=== PATIENT | female | born 1990 | race Caucasian/White ===

== ENCOUNTER 2016-10-30 10:43 | Emergency (ER) | payer OTHER ==
[2016-10-30] MEDS ORDERED: SODIUM CHLORIDE 0.9% 1,000 ML IV ONE (11:19)
--- NOTE | 2016-10-30 11:43 | ED ---
Syncope HPI - General Chief Complaint: Syncope Stated Complaint: Syncope, 13wks preg Time Seen by Provider: 10/30/16 11:08 Source: patient Mode of arrival: ambulatory Limitations: no limitations - History of Present Illness Initial Comments: This patient is a 26-year-old woman, who states that she is also approximately 13 weeks , who states that she would like to be evaluated after she passed out. The patient relates that she dropped something and in attempting to catch it while it was falling she "jammed her finger." She states that there was a lot of pain related to this and then she passed out. The episode was observed by her who states that she was unconscious for probably about 2 seconds. There was no tonic-clonic movement or loss of continence. The patient did not have any notable postictal period. However since that time the patient has felt a little bit lightheaded and shaky. MD Complaint: loss of consciousness Onset/Timin -: hour(s) Prodromal Symptoms: lightheaded Duration of Episode: 2 -: second(s) Witnessed: yes - by bystander Injuries Sustained Associated with Event: None Current Symptoms: lightheaded, other (Shaky) Context: related to severe pain Treatments Prior to Arrival: none - Related Data Allergies Allergy/AdvReac Type Severity Reaction Status Date / Time Iodinated Contrast Media - AdvReac Rash/Hives Verified 10/30/16 10:54 Oral and sulfamethoxazole AdvReac Rash/Hives Verified 10/30/16 10:54 [From Bactrim] trimethoprim [From Bactrim] AdvReac Rash/Hives Verified 10/30/16 10:54 Review of Systems ROS Statement: Those systems with pertinent positive or pertinent negative responses have been documented in the HPI. ROS Other: All systems not noted in ROS Statement are negative. Constitutional: Denies: fever, chills, weakness Eyes: Denies: vision change Respiratory: Denies: cough, dyspnea Cardiovascular: Reports: as per HPI, syncope. Denies: chest pain Gastrointestinal: Denies: abdominal pain, nausea, vomiting Genitourinary: Denies: dysuria Musculoskeletal: Reports: as per HPI. Denies: back pain Skin: Denies: rash Neurological: Denies: headache, weakness, numbness Past Medical History History of Any Multi-Drug Resistant Organisms: None Reported Additional Past Surgical History / Comment(s): colonoscopy, leap Past Psychological History: No Psychological Hx Reported Smoking Status: Never smoker Past Alcohol Use History: Occasional Past Drug Use History: None Reported General Exam Limitations: no limitations General appearance: alert, in no apparent distress Head exam: Present: atraumatic, normocephalic Eye exam: Present: normal appearance. Absent: scleral icterus, conjunctival injection Neck exam: Present: normal inspection, full ROM Respiratory exam: Present: normal lung sounds bilaterally. Absent: respiratory distress, wheezes, rales, rhonchi, stridor Cardiovascular Exam: Present: normal rhythm, tachycardia (Heart rate is 108 at my exam), normal heart sounds. Absent: systolic murmur, diastolic murmur, rubs , gallop GI/Abdominal exam: Present: soft. Absent: tenderness, guarding, rebound Extremities exam: Present: normal inspection, normal capillary refill. Absent: pedal edema, calf tenderness Back exam: Absent: CVA tenderness (R), CVA tenderness (L) Neurological exam: Present: alert, oriented X3, normal gait. Absent: motor sensory deficit Psychiatric exam: Present: normal affect Skin exam: Present: warm, dry, intact, normal color. Absent: rash Course Vital Signs 10/30/16 10/30/16 10:49 12:11 Temperature 97 F L 98.7 F Pulse Rate 133 H 96 Respiratory 20 18 Rate Blood Pressure 146/86 123/67 O2 Sat by Pulse 100 98 Oximetry Medical Decision Making - Lab Data Result diagrams: 10/30/16 11:52 10/30/16 11:52 Lab Results 10/30/16 10/30/16 Range/Units 11:52 11:52 WBC 5.4 (3.8-10.6) k/uL RBC 4.13 (3.80-5.40) m/uL Hgb 12.7 (11.4-16.0) gm/dL Hct 38.5 (34.0-46.0) % MCV 93.2 (80.0-100.0) fL MCH 30.8 (25.0-35.0) pg MCHC 33.1 (31.0-37.0) g/dL RDW 12.7 (11.5-15.5) % Plt Count 240 (150-450) k/uL Neutrophils % 65 % Lymphocytes % 19 % Monocytes % 8 % Eosinophils % 3 % Basophils % 0 % Neutrophils # 3.5 (1.3-7.7) k/uL Lymphocytes # 1.0 (1.0-4.8) k/uL Monocytes # 0.4 (0-1.0) k/uL Eosinophils # 0.2 (0-0.7) k/uL Basophils # 0.0 (0-0.2) k/uL Sodium 138 (137-145) mmol/L Potassium 4.0 (3.5-5.1) mmol/L Chloride 106 (98-107) mmol/L Carbon Dioxide 21 L (22-30) mmol/L Anion Gap 11 mmol/L BUN 9 (7-17) mg/dL Creatinine 0.67 (0.52-1.04) mg/dL Est GFR (MDRD) Af Amer >60 (>60 ml/min/1.73 sqM) Est GFR (MDRD) Non-Af >60 (>60 ml/min/1.73 sqM) Glucose 117 H (74-99) mg/dL Calcium 8.9 (8.4-10.2) mg/dL Total Bilirubin 0.3 (0.2-1.3) mg/dL AST 20 (14-36) U/L ALT 29 (9-52) U/L Alkaline Phosphatase 43 (38-126) U/L Total Protein 6.9 (6.3-8.2) g/dL Albumin 3.7 (3.5-5.0) g/dL Disposition Clinical Impression: Vasovagal syncope, Finger sprain Disposition: HOME SELF-CARE Condition: Good Instructions: Finger Sprain (ED), Syncope (ED) Referrals: Wes Marley MD [Primary Care Provider] - 1-2 days
[2016-10-30 12:04] LABS: Basophils % (A) 0 %; CH 32.1; CHCM 34.6; Eosinophils # (A) 0.2 k/uL (0-0.7); Eosinophils % (A) 3 %; HCT 38.5 % (34.0-46.0); HDW 2.55; HGB 12.7 gm/dL (11.4-16.0); Luc # (Auto) 0.24; Luc % (Auto) 5; Lymphocytes % (A) 19 %; MCH 30.8 pg (25.0-35.0); MCHC 33.1 g/dL (31.0-37.0); MCV 93.2 fL (80.0-100.0); Mean Platelet Volume 6.5; Monocytes # (A) 0.4 k/uL (0-1.0); Monocytes % (A) 8 %; Neutrophils # (A) 3.5 k/uL (1.3-7.7); Neutrophils % (A) 65 %; RBC 4.13 m/uL (3.80-5.40); RDW 12.7 % (11.5-15.5); WBC 5.4 k/uL (3.8-10.6); WBC (Perox) 5.39
[2016-10-30 12:12] LABS: ALT 29 U/L (9-52); AST 20 U/L (14-36); Alkaline Phosphatase 43 U/L (38-126); Anion Gap 11 mmol/L; Blood Urea Nitrogen 9 mg/dL (7-17); Calcium 8.9 mg/dL (8.4-10.2); Carbon Dioxide 21 mmol/L (22-30); Chloride 106 mmol/L (98-107); Glucose 117 mg/dL (74-99); Non-African American GFR(MDRD) >60 (>60 ml/min/1.73 sqM); Sodium 138 mmol/L (137-145); Total Bilirubin 0.3 mg/dL (0.2-1.3); Total Protein 6.9 g/dL (6.3-8.2)
[2016-10-30 12:20] VITALS: RESP 18
[2016-10-30 12:47] VITALS: BP 146/77; PULSE 97; TEMP 97.3
== END 2016-10-30 12:47 | disposition home or self-care (01) ==
LOC: EC 10:43 → MERGE 10:43 → EC 12:47
DX: O26.891 Other specified pregnancy related conditions, first trimester (principal); R55 Syncope and collapse; S63.619A Unspecified sprain of unspecified finger, initial encounter; Z3A.13 13 weeks gestation of pregnancy; Z88.2 Allergy status to sulfonamides; Z88.1 Allergy status to other antibiotic agents; Z91.041 Radiographic dye allergy status; W22.09XA Striking against other stationary object, initial encounter
CPT/HCPCS: 36415; 80053; 85025; 96360; 99284

== ENCOUNTER → 2017-02-24 | Outpatient (CLI) | payer OTHER | END | disposition home or self-care (01) | LOC: LABWHC1 07:48 | PROVIDERS: ATTEND Obstetrics & Gynecology | DX: O26.86 Pruritic urticarial papules and plaques of pregnancy (PUPPP) (principal) | CPT/HCPCS: 36415; 82239 ==

== ENCOUNTER 2017-05-09 03:20 | Inpatient (IN) | payer OTHER ==
[2017-05-09] MEDS ORDERED: TERBUTALINE 1 MG/ML VIAL SQ PRN (03:40)
[2017-05-09] MEDS ORDERED: PENICILLIN G POTASSIUM 5,000,000 UNIT in DEXTROSE 5% IN WATER 100 ML IV STA ×2 (03:40)
[2017-05-09] MEDS ORDERED: LIDOCAINE 1% (PF) 10 MG/ML (30 ML SDV) SQ PRN (03:40)
[2017-05-09] MEDS ORDERED: CARBOPROST TROMETHAMINE 250 MCG/ML 1 ML AMP IM PRN (03:40)
[2017-05-09] MEDS ORDERED: OXYTOCIN 10 UNIT/ML 1 ML VIAL IM PRN (03:40)
[2017-05-09] MEDS ORDERED: METHYLERGONOVINE 0.2 MG/ML 1 ML AMP IM PRN (03:40)
[2017-05-09] MEDS ORDERED: LACTATED RINGERS 1,000 ML IV SCH (03:45)
[2017-05-09 04:23] LABS: Basophils % (A) 0 %; CH 28.8; CHCM 33.4; Eosinophils # (A) 0.1 k/uL (0-0.7); Eosinophils % (A) 1 %; HCT 29.1 % (34.0-46.0); HDW 3.14; HGB 9.8 gm/dL (11.4-16.0); Luc # (Auto) 0.18; Luc % (Auto) 2; Lymphocytes # (A) 1.1 k/uL (1.0-4.8); Lymphocytes % (A) 10 %; MCH 29.4 pg (25.0-35.0); MCHC 33.9 g/dL (31.0-37.0); MCV 86.8 fL (80.0-100.0); Mean Platelet Volume 7.5; Monocytes # (A) 0.7 k/uL (0-1.0); Monocytes % (A) 6 %; Neutrophils # (A) 8.5 k/uL (1.3-7.7); Neutrophils % (A) 81 %; RBC 3.35 m/uL (3.80-5.40); RDW 15.4 % (11.5-15.5); WBC 10.5 k/uL (3.8-10.6); WBC (Perox) 11.33
--- NOTE | 2017-05-09 05:18 | P.HPOB ---
History of Present Illness H&P Date: 05/09/17 26-year-old white female 1 para 0 EDC 05/07/2017 at 40-2/7 weeks' gestation. Patient presents with strong regular uterine contractions at home. She denies vaginal bleeding or fluid leaking stitch. Fetus is been active throughout the . Past medical history is significant for herpes simplex virus, currently on Zoloft daily. No active prodromes or lesions. Past surgical history colonoscopy 2010, colposcopy and LEEP procedure 2015. Current medications vitamins daily. ALLERGIES include Bactrim DS to which reports hives, red food dye and other environmental and food ALLERGIES. Family history significant for Raynaud syndrome, heart disease, hypertension, lung cancer. Social history patient is , she has never been a smoker, she denies alcohol or drug use with the . history blood type O+, rubella status immune. VDRL testing, urine culture, hepatitis B surface antigen, HIV testing, gonorrhea and chlamydia cultures all negative. Group B strep cultures positive. On exam this is a pleasant white female, 5 foot 1 inch, 180 pounds, blood pressure 129/86 on admission, vital signs are stable and she is afebrile. The general physical exam is within normal limits. The extremities reveal no edema. heart rate is consistent with reactive NST. Cervix at time of this dictation is 9 cm dilated, 100% effaced, -1 station, vertex presentation. Artificial amniorrhexis reveals clear fluid. Impression: 40-2/7 weeks intrauterine , active spontaneous labor, positive group B strep cultures, one dose of penicillin G has at this time been given. Plan: Continue close maternal and surveillance. Analgesia has been offered and declined. Anticipate normal spontaneous vaginal delivery. Review of Systems Constitutional: Reports as per HPI Past Medical History Additional Past Medical History / Comment(s): LEEP, HSV, seizures as History of Any Multi-Drug Resistant Organisms: None Reported Additional Past Surgical History / Comment(s): colonoscopy, LEEP Past Anesthesia/Blood Transfusion Reactions: No Reported Reaction Past Psychological History: No Psychological Hx Reported Smoking Status: Never smoker Past Alcohol Use History: Occasional Past Drug Use History: None Reported - Past Family History Mother Additional Family Medical History / Comment(s): IBS, Raynaud's Disease Father Family Medical History: Coronary Artery Disease (CAD), Hyperlipidemia, Hypertension Brother(s) Family Medical History: Asthma Medications and Allergies Home Medications Medication Instructions Recorded Confirmed Type Omeprazole [PriLOSEC] 40 mg PO DAILY 05/09/17 05/09/17 History Pnv,Calcium 72/Iron/Folic Acid 1 tab PO DAILY 05/09/17 05/09/17 History [ Plus Tablet] valACYclovir HCL [Valtrex] 500 mg PO DAILY 05/09/17 05/09/17 History Allergies Allergy/AdvReac Type Severity Reaction Status Date / Time Iodinated Contrast- Oral and AdvReac Rash/Hives Verified 05/09/17 03:27 IV Dye [Iodinated Contrast Media - Oral and] sulfamethoxazole AdvReac Rash/Hives Verified 05/09/17 03:27 [From Bactrim] trimethoprim [From Bactrim] AdvReac Rash/Hives Verified 05/09/17 03:27 Exam - Vital Signs Vital signs: Vital Signs Temp Pulse Resp BP Pulse Ox 05/09/17 03:39 97.6 F 117 H 18 129/86 99 Intake and Output 05/08/17 05/08/17 05/09/17 14:59 22:59 06:59 Other: Weight 81.647 kg Patient Weight 05/09/17 06:59 Weight 81.647 kg See full dictation under gray ARREAGA Results Result Diagrams: 05/09/17 04:08 Abnormal Lab Results - Last 24 Hours (Table) 05/09/17 Range/Units 04:08 RBC 3.35 L (3.80-5.40) m/uL Hgb 9.8 L (11.4-16.0) gm/dL Hct 29.1 L (34.0-46.0) % Neutrophils # 8.5 H (1.3-7.7) k/uL Assessment and Plan Plan: Close maternal and surveillance. Anticipate normal spontaneous vaginal delivery. Time with Patient: Less than 30
[2017-05-09] MEDS: PENICILLIN G POTASSIUM 2,500,000 UNIT in DEXTROSE 5% IN WATER 100 ML IV SCH ×4 (07:57→21:28)
[2017-05-09] MEDS ORDERED: CITRIC ACID-SODIUM CITRATE 15 ML CUP PO ONE (08:38)
[2017-05-09] MEDS ORDERED: ONDANSETRON 4 MG/2 ML VIAL ONE (09:10)
[2017-05-09] MEDS ORDERED: ePHEDrine SULFATE/0.9% NACL/PF 50 MG/5 ML SYRINGE IV ONE (09:10)
[2017-05-09] MEDS ORDERED: OXYTOCIN 10 UNIT/ML 1 ML VIAL ONE (09:10)
[2017-05-09] MEDS ORDERED: KETOROLAC 30 MG/ML 1 ML VIAL ONE (09:10)
[2017-05-09] MEDS ORDERED: NALBUPHINE 10 MG/ML AMPUL ONE (09:10)
[2017-05-09] MEDS ORDERED: MORPHINE SULFATE (PF) 0.3 MG/0.3 ML SYR ONE (09:10)
[2017-05-09] MEDS ORDERED: diphenhydrAMINE 50 MG CAP PO PRN (09:57)
[2017-05-09] MEDS ORDERED: SIMETHICONE 80 MG CHEWABLE PO PRN (09:57)
[2017-05-09] MEDS ORDERED: Acetaminophen-Codeine 300-30mg TAB PO PRN (09:57)
[2017-05-09] MEDS ORDERED: diphenhydrAMINE 25 MG CAP PO PRN (09:57)
[2017-05-09] MEDS ORDERED: ACETAMINOPHEN TAB 325 MG TAB PO PRN (09:57)
[2017-05-09] MEDS ORDERED: METOCLOPRAMIDE 5 MG/ML 2 ML VIAL IVP PRN (09:57)
[2017-05-09] MEDS ORDERED: LANOLIN CREAM 5 GM TUBE TOPICAL PRN (09:57)
[2017-05-09] MEDS ORDERED: diphenhydrAMINE 50 MG/ML 1 ML VIAL IVP PRN ×3 (09:57→11:00)
[2017-05-09] MEDS ORDERED: KETOROLAC 30 MG/ML 1 ML VIAL IVP PRN (09:57)
[2017-05-09] MEDS ORDERED: ONDANSETRON 4 MG/2 ML VIAL IVP PRN ×2 (09:57→11:00)
[2017-05-09] MEDS ORDERED: ZOLPIDEM 5 MG TAB PO PRN (09:57)
[2017-05-09] MEDS ORDERED: NALOXONE 0.4 MG/ML 1 ML VIAL IV PRN ×2 (09:57→11:00)
[2017-05-09] MEDS ORDERED: OXYTOCIN 20 UNITS/1000 ML NS 1,000 ML IV SCH (10:00)
--- NOTE | 2017-05-09 10:08 | P.OP ---
Date of Procedure: 05/09/17 Preoperative Diagnosis: #1. 40-2/7 weeks, labor #2. Group B strep colonization #3. Arrest of descent Postoperative Diagnosis: Same Procedure(s) Performed: #1. Primary low-transverse section Implants: Anesthesia: spinal Surgeon: Hector Webber Marine Structural Designer #1: Ary Martinez Estimated Blood Loss (ml): 300 IV fluids (ml): 700 Urine output (ml): 300 Pathology: other (Placenta) Condition: stable Disposition: floor Indications for Procedure: Operative Findings: Preoperatively, the patient had reached complete and 0 station and began pushing effectively without an epidural. She was noted to have a very narrow pubic arch some and the head was entrapped behind the pubic symphysis. After approximately 1 hour of pushing with no descent below approximately 0 station, the patient was counseled and agreed to undergo primary section. She was taken the operating room where she was delivered of a viable 8 lbs. 1 oz. baby girl with Apgars of 8 at 1 minute and 9 at 5 minutes delivered in the left occiput anterior position. The placenta was delivered manually, intact, and grossly normal with a grossly normal three-vessel cord. The uterus, tubes, and ovaries were entirely normal to inspection. There was an extension of the uterine incision at the left angle towards the cervix which was closed continuously with the uterine closure. Description of Procedure: The patient was prepped and draped in usual fashion after spinal anesthesia was administered by the anesthesiologist. A Pfannenstiel incision was made and extended into the abdominal cavity without difficulty. The bladder peritoneum was noted to be distal and left intact. A 2 cm incision was made in the transverse plane of the lower uterine segment to enter the uterus at which time clear fluid was again noted. The incision was extended in both directions using the bandage scissors. The head was encountered deep within the pelvis and was elevated up and through the incision where the nose and mouth were thoroughly suctioned. A nuchal cord 1 was noted and reduced prior to delivery. Remainder of the infant was delivered onto the field where the cord was doubly clamped, cut, and the passed for resuscitative measures with weight and Apgars as noted above. A segment of cord was doubly clamped, cut, and set aside should cord gases become necessary. The placenta was delivered manually and intact as noted above. The uterus was exteriorized and the interior cavity of the uterus swept of any remaining placental or membranous fragments. The margins of the incision were grasped with Sharma clamps and the extension on the left angle was noted. The repair began in the at the depth of the left extension and was then carried out in a continuous fashion in 2 layers. The first layer was a running locking stitch of 0 chromic catgut followed by a running imbricating stitch of 0 chromic catgut from margin to margin. The incision appeared to be hemostatic. The posterior cul-de-sac was suctioned using a guard and the uterine and ovarian findings were normal as noted above. The uterus was replaced within the abdominal cavity and the gutters were swept of any remaining blood, fluid, or clot. The incision was reexamined and any small points of bleeding were made hemostatic with the Bovie. Once hemostasis was adequate, the parietal peritoneum was reapproximated loosely in the layer of muscles examined and made hemostatic with the Bovie. The fascia was closed with 2 running stitches of 0 Vicryl proceeding from the lateral margins to the midpoint. The subcutaneous tissues were irrigated, made hemostatic with the Bovie, and reapproximated with a running stitch of 30 plain catgut. The skin was reapproximated with a running subcuticular stitch of 4-0 Vicryl from margin to margin followed by half-inch Steri-Strips placed with Mastisol. Estimated blood loss for the case is approximately 300 mL. There were no complications. All sponge, instrument, and needle counts were correct. Both mother and infant are resting comfortably in recovery.
[2017-05-09 11:05] VITALS: RESP 16
[2017-05-09] MEDS: KETOROLAC 30 MG/ML 1 ML VIAL IVP PRN ×2 (18:02→23:51)
[2017-05-09] MEDS: SENNOSIDES-DOCUSATE SODIUM 1 EACH TAB PO SCH (19:35)
[2017-05-09] MEDS: LACTATED RINGERS 1,000 ML IV SCH ×2 (21:27→21:28)
[2017-05-10] MEDS: KETOROLAC 30 MG/ML 1 ML VIAL IVP PRN (06:06)
[2017-05-10] MEDS: SENNOSIDES-DOCUSATE SODIUM 1 EACH TAB PO SCH ×2 (07:33→20:45)
[2017-05-10 08:20] LABS: Basophils % (A) 0 %; CH 28.7; CHCM 32.4; Eosinophils # (A) 0.1 k/uL (0-0.7); Eosinophils % (A) 1 %; HCT 25.3 % (34.0-46.0); HDW 3.06; Hypochromasia Slight; Luc # (Auto) 0.27; Luc % (Auto) 2; Lymphocytes # (A) 1.1 k/uL (1.0-4.8); Lymphocytes % (A) 9 %; MCH 28.9 pg (25.0-35.0); MCHC 32.5 g/dL (31.0-37.0); MCV 88.9 fL (80.0-100.0); Mean Platelet Volume 7.6; Monocytes # (A) 0.7 k/uL (0-1.0); Monocytes % (A) 6 %; Neutrophils # (A) 9.8 k/uL (1.3-7.7); Neutrophils % (A) 82 %; RBC 2.84 m/uL (3.80-5.40); RDW 15.6 % (11.5-15.5); WBC 11.9 k/uL (3.8-10.6)
[2017-05-10 08:27] LABS: HGB 8.2 gm/dL (11.4-16.0)
--- NOTE | 2017-05-10 09:20 | P.PNOBGPC ---
Subjective - Subjective Patient reports: Reports appetite normal, Reports voiding normally, Reports pain well controlled, Reports ambulating normally : doing well Objective - Vital Signs Latest vital signs: Vital Signs Temp Pulse Resp BP Pulse Ox 05/10/17 08:00 98.4 F 77 16 114/66 97 05/10/17 06:00 16 05/10/17 04:00 98.5 F 85 16 113/66 97 05/10/17 02:00 16 05/10/17 00:00 98.5 F 92 16 118/79 98 05/09/17 22:00 16 05/09/17 19:55 98.0 F 102 H 16 138/79 98 05/09/17 16:00 98.5 F 95 16 134/76 99 05/09/17 14:00 80 16 132/68 05/09/17 12:09 98.5 F 80 16 130/69 99 05/09/17 12:00 99 05/09/17 11:39 98.5 F 80 16 140/71 99 05/09/17 11:09 98.5 F 88 16 116/64 99 05/09/17 11:00 99 16 135/63 99 05/09/17 10:54 98.5 F 88 18 135/63 99 05/09/17 10:39 88 16 120/57 05/09/17 10:24 98 16 126/61 99 05/09/17 10:09 96.9 F L 96 16 123/58 99 Intake and Output 05/09/17 05/10/17 05/10/17 22:59 06:59 14:59 Output Total 1100 Balance -1100 Output: Urine 1100 Other: # Voids 0 1 - Exam Lungs: bilateral: normal Chest: Normal S1, Normal S2 Extremities: Present: normal Abdomen: Present: normal appearance, soft. Absent: distention, tenderness Incision: Present: normal, dry, intact Uterus: Present: normal, firm (Uterine fundus as tonic and nontender at the umbilicus.) - Labs Labs: Abnormal Lab Results - Last 24 Hours (Table) 05/10/17 Range/Units 08:05 WBC 11.9 H (3.8-10.6) k/uL RBC 2.84 L (3.80-5.40) m/uL Hgb 8.2 L D (11.4-16.0) gm/dL Hct 25.3 L (34.0-46.0) % RDW 15.6 H (11.5-15.5) % Neutrophils # 9.8 H (1.3-7.7) k/uL Assessment and Plan (1) S/P section Narrative/Plan: Continue routine postoperative care. I would anticipate discharge home tomorrow pending no complications. I have encouraged her to ambulate in the hallways at least 4 times daily. Current Visit: Yes Status: Acute Code(s): Z98.891 - HISTORY OF UTERINE SCAR FROM PREVIOUS SURGERY SNOMED Code(s): 532029263
[2017-05-10] MEDS: Acetaminophen-Codeine 300-30mg TAB PO PRN ×2 (13:30→18:39)
[2017-05-11] MEDS: IBUPROFEN 600 MG TAB PO PRN ×2 (00:25→07:25)
[2017-05-11] MEDS: SENNOSIDES-DOCUSATE SODIUM 1 EACH TAB PO SCH (07:25)
--- NOTE | 2017-05-11 07:46 | P.PN ---
Progress Note - Text Date: 05/10/2017 Time: 707 The patient is status post section Vital signs stable VAS: 0-10 Patient has no complaints of pain. The patient incurred some minimal itching yesterday, this itching is now subsiding. Pain meds to be managed by service.
[2017-05-11 08:15] VITALS: BP 123/76; PULSE 82; TEMP 98.6
--- NOTE | 2017-05-11 08:47 | P.DS ---
Providers Date of admission: 05/09/17 03:40 Expected date of discharge: 05/11/17 Attending physician: Hector Webber Primary care physician: Hector Webber - Discharge Diagnosis(es) (1) S/P section Current Visit: Yes Status: Acute Hospital Course: The patient is a 26-year-old 1 para 0 admitted at 40-2/7 weeks by good dating parameters. She is admitted in active labor with all signs reassuring. Her was uncomplicated and group B strep status is positive. As result , antibiotic prophylaxis was started. She underwent artificial rupture of membranes demonstrating clear fluid. She then took some time to progress to complete and then pushed for approximately an hour with no descent below 0 station. As result, she was taken to the operating room for primary low- transverse section secondary to arrest of descent where she was delivered of a viable 8 lbs. 1 oz. baby girl with Apgars of 8 at 1 minute and 9 at 5 minutes. Her post operative course was unremarkable with vital signs remaining stable and her temperature was afebrile throughout. She was deemed stable for discharge by postoperative day #2 and was discharged home to follow- up in the office in 2 weeks for an incision check and 6 weeks routinely. Discharge instructions included calling for any significantly increased bleeding or foul-smelling lochia, significantly increased fever abdominal pain, perineal complaints, breast complaints, incisional complaints, or anything else that concerned her. She was additionally instructed to have nothing in the vagina for 6 weeks time to include intercourse and to abstain from any heavy lifting over the same period of time. She was last instructed to do no driving until off of all pain medications or 2 weeks' time, whichever came first. She understood all of her instructions and agrees to follow up as noted above. Discharge medications included continued vitamins as she has opted to breast-feed. She was additionally given a prescription for Tylenol No. 3, 1-2 by mouth every 6 hours when necessary pain, #30 dispensed with no refills. She was additionally to use [id number] analgesic pain medications as necessary. Maternal blood type is O+ and rubella status is immune. Discharge hemoglobin and hematocrit were 8.2 and 25.3 respectively. As result, she was additionally to use iron sulfate 325 mg 1-2 times daily for at least 1 month. Procedures: #1. Antibiotic prophylaxis #2. Artificial rupture of membranes #3. Primary low-transverse section Patient Condition at Discharge: Good Plan - Discharge Summary New Discharge Prescriptions: No Action valACYclovir HCL [Valtrex] 500 mg PO DAILY Pnv,Calcium 72/Iron/Folic Acid [ Plus Tablet] 1 tab PO DAILY Omeprazole [PriLOSEC] 40 mg PO DAILY Discharge Medication List Omeprazole [PriLOSEC] 40 mg PO DAILY 05/09/17 [History] Pnv,Calcium 72/Iron/Folic Acid [ Plus Tablet] 1 tab PO DAILY 05/09/17 [ History] valACYclovir HCL [Valtrex] 500 mg PO DAILY 05/09/17 [History] Follow up Appointment(s)/Referral(s): Hector Webber MD [Primary Care Provider] - 2 Weeks Discharge Disposition: HOME SELF-CARE
[2017-05-11] MEDS: Acetaminophen-Codeine 300-30mg TAB PO PRN (11:33)
== END 2017-05-11 11:30 | disposition home or self-care (01) | DRG 765 ==
LOC: FBPOP 03:20 → 4FBP 03:40
PROVIDERS: ADMIT Obstetrics & Gynecology; ATTEND Obstetrics & Gynecology
PROC: 10907ZC Drainage of Amniotic Fluid, Therapeutic from Products of Conception, Via Natural or Artificial Opening (ICD-10-PCS; 2017-05-09)
PROC: 10D00Z1 Extraction of Products of Conception, Low, Open Approach (ICD-10-PCS; principal; 2017-05-09 08:49)
DX: O69.81X0 Labor and delivery complicated by cord around neck, without compression, not applicable or unspecified (principal); O99.834 Other infection carrier state complicating childbirth; O99.824 Streptococcus B carrier state complicating childbirth; O62.1 Secondary uterine inertia; B00.9 Herpesviral infection, unspecified; Z3A.40 40 weeks gestation of pregnancy; Z37.0 Single live birth; Z79.899 Other long term (current) drug therapy; Z88.2 Allergy status to sulfonamides; Z88.1 Allergy status to other antibiotic agents; Z91.041 Radiographic dye allergy status; Z80.1 Family history of malignant neoplasm of trachea, bronchus and lung; Z82.49 Family history of ischemic heart disease and other diseases of the circulatory system; Z82.5 Family history of asthma and other chronic lower respiratory diseases; Z84.89 Family history of other specified conditions
CPT/HCPCS: 59025; 85025; 86850; 86900; 86901; 88307; 99213

== ENCOUNTER 2018-10-02 10:05 | Inpatient (IN) | payer OTHER ==
[2018-10-02] MEDS ORDERED: LACTATED RINGERS 1,000 ML IV ONE (10:41)
[2018-10-02] MEDS ORDERED: CITRIC ACID-SODIUM CITRATE 15 ML CUP PO ONE (10:41)
[2018-10-02] MEDS ORDERED: ceFAZolin IN SWFI 2 GM/20 ML SYRINGE IVP ONE (10:41)
[2018-10-02 10:49] VITALS: BMI 34.7
[2018-10-02 11:19] LABS: Anisocytosis Slight; Basophils % (A) 0 %; Eosinophils # (A) 0.1 k/uL (0-0.7); Eosinophils % (A) 1 %; HGB 8.7 gm/dL (11.4-16.0); Hypochromasia Moderate; Lymphocytes # (A) 1.3 k/uL (1.0-4.8); Lymphocytes % (A) 15 %; MCH 24.5 pg (25.0-35.0); MCV 79.1 fL (80.0-100.0); Mean Platelet Volume 7.4; Monocytes # (A) 0.5 k/uL (0-1.0); Monocytes % (A) 7 %; Neutrophils # (A) 6.3 k/uL (1.3-7.7); Neutrophils % (A) 76 %; Platelet Count 308 k/uL (150-450); Poikilocytosis Slight; RBC 3.54 m/uL (3.80-5.40); RDW 16.3 % (11.5-15.5); WBC 8.3 k/uL (3.8-10.6)
[2018-10-02] MEDS ORDERED: NALBUPHINE 10 MG/ML (1 ML AMP) ONE (12:38)
[2018-10-02] MEDS ORDERED: OXYTOCIN 10 UNIT/ML 1 ML VIAL ONE (12:38)
[2018-10-02] MEDS ORDERED: KETOROLAC 30 MG/ML 1 ML VIAL ONE (12:38)
[2018-10-02] MEDS ORDERED: MORPHINE SULFATE (PF) 0.3 MG/0.3 ML SYR ONE (12:38)
[2018-10-02] MEDS ORDERED: ONDANSETRON 4 MG/2 ML VIAL ONE (12:38)
[2018-10-02] MEDS ORDERED: ePHEDrine SULFATE/0.9% NACL/PF 50 MG/5 ML SYRINGE IV ONE (12:38)
[2018-10-02] MEDS ORDERED: SIMETHICONE 80 MG CHEWABLE PO PRN (13:26)
[2018-10-02] MEDS ORDERED: diphenhydrAMINE 50 MG CAP PO PRN (13:26)
[2018-10-02] MEDS ORDERED: ACETAMINOPHEN TAB 325 MG TAB PO PRN (13:26)
[2018-10-02] MEDS ORDERED: METOCLOPRAMIDE 5 MG/ML 2 ML VIAL IVP PRN (13:26)
[2018-10-02] MEDS ORDERED: NALOXONE 0.4 MG/ML 1 ML VIAL IV PRN (13:26)
[2018-10-02] MEDS ORDERED: ZOLPIDEM 5 MG TAB PO PRN (13:26)
[2018-10-02] MEDS ORDERED: HYDROcodone/APAP 5-325MG 1 EACH TAB PO PRN (13:26)
[2018-10-02] MEDS ORDERED: diphenhydrAMINE 50 MG/ML 1 ML VIAL IVP PRN ×2 (13:26)
[2018-10-02] MEDS ORDERED: ONDANSETRON 4 MG/2 ML VIAL IVP PRN (13:26)
[2018-10-02] MEDS ORDERED: diphenhydrAMINE 25 MG CAP PO PRN (13:26)
[2018-10-02] MEDS ORDERED: HYDROcodone/APAP 7.5-325MG 1 EACH TAB PO PRN (13:26)
[2018-10-02] MEDS ORDERED: LANOLIN CREAM 5 GM TUBE TOPICAL PRN (13:26)
[2018-10-02] MEDS ORDERED: OXYTOCIN 20 UNITS/1000 ML NS 1,000 ML IV SCH (13:30)
--- NOTE | 2018-10-02 13:32 | P.HPOB ---
History of Present Illness H&P Date: 10/02/18 Chief Complaint: 39-0/7 weeks, previous section declining The patient is a 28-year-old 2 para 1001 admitted at 39-0/7 weeks as established by last menstrual period and confirmed by 9 week ultrasound. She has a history of a previous section at term and declined trial of labor. She has instead requested repeat low transverse section. Her has been uncomplicated though she does have a history of HSV for which she began Valtrex prophylaxis at approximately 35 weeks. She additionally found to be group B strep positive. Obstetrical history: 2 para 1001 with 1 term delivery for arrest of dilation and descent. Current statistics are listed in history present illness. EDC of 10/09/2018 was established by last menstrual period and confirmed by 9 week ultrasound. Laboratory workup demonstrates a blood type of O+ with a negative antibody screen. Rubella status is immune. The remainder of laboratory workup was within normal limits. One hour Glucola was normal and group B strep status is positive. Gynecologic history: Unremarkable with no history of any infections to include STDs though she does carry a history of HSV in the past but has had no lesions during the and was on prophylaxis after 35 weeks. Review of Systems Review of systems is confined to history of present illness. Past Medical History Additional Past Medical History / Comment(s): LEEP, HSV, seizures as infant History of Any Multi-Drug Resistant Organisms: None Reported Past Surgical History: Section Additional Past Surgical History / Comment(s): colonoscopy, LEEP Past Anesthesia/Blood Transfusion Reactions: No Reported Reaction Past Psychological History: No Psychological Hx Reported Smoking Status: Never smoker Past Alcohol Use History: Occasional Past Drug Use History: None Reported - Past Family History Mother Additional Family Medical History / Comment(s): IBS, Raynaud's Disease Father Family Medical History: Coronary Artery Disease (CAD), Hyperlipidemia, Hypertension Brother(s) Family Medical History: Asthma Medications and Allergies Home Medications Medication Instructions Recorded Confirmed Type Pnv,Calcium 72/Iron/Folic Acid 1 tab PO DAILY 05/09/17 10/02/18 History [ Plus Tablet] Ranitidine HCl [Zantac] 75 mg PO HS 10/02/18 10/02/18 History Allergies Allergy/AdvReac Type Severity Reaction Status Date / Time Iodinated Contrast- Oral and AdvReac Rash/Hives Verified 10/02/18 10:40 IV Dye [Iodinated Contrast Media - Oral and] sulfamethoxazole AdvReac Rash/Hives Verified 10/02/18 10:40 [From Bactrim] trimethoprim [From Bactrim] AdvReac Rash/Hives Verified 10/02/18 10:40 Exam Vital Signs Temp Pulse Resp BP Pulse Ox 10/02/18 10:25 97.5 F L 111 H 18 123/72 99 Intake and Output 10/01/18 10/02/18 10/02/18 22:59 06:59 14:59 Other: Weight 83.461 kg In general, this is a well-developed, well-nourished white female in no acute distress. Her heart has a regular rhythm and rate without murmur. Her lungs are clear to auscultation bilaterally in all [place]. Her abdomen is gravid, nondistended, has normal active bowel sounds, is soft, nontender, and without any palpable masses aside from uterine fundus. Her extremities are without any cyanosis, clubbing, or edema and are nontender to palpation bilaterally. Digital cervical examination is deferred. Results Result Diagrams: 10/02/18 10:45 Abnormal Lab Results - Last 24 Hours (Table) 10/02/18 Range/Units 10:45 RBC 3.54 L (3.80-5.40) m/uL Hgb 8.7 L (11.4-16.0) gm/dL Hct 28.0 L (34.0-46.0) % MCV 79.1 L (80.0-100.0) fL MCH 24.5 L (25.0-35.0) pg RDW 16.3 H (11.5-15.5) % Assessment and Plan (1) Term Current Visit: Yes Status: Acute Code(s): Z34.80 - ENCOUNTER FOR SUPRVSN OF NORMAL , UNSP TRIMESTER SNOMED Code(s): 67322413 (2) Previous section Current Visit: Yes Status: Acute Code(s): Z98.891 - HISTORY OF UTERINE SCAR FROM PREVIOUS SURGERY SNOMED Code(s): 967300975 Plan: The patient is admitted for repeat low transverse section. The risks and complications have been thoroughly discussed and the patient has understood and agreed to proceed.
--- NOTE | 2018-10-02 13:37 | P.OP ---
Date of Procedure: 10/02/18 Preoperative Diagnosis: #1. 39-0/7 weeks, previous section, declining Postoperative Diagnosis: Same Procedure(s) Performed: #1. Repeat low transverse section Anesthesia: spinal Surgeon: Hector Webber Farm Management Adviser #1: Ary Martinez Estimated Blood Loss (ml): 500 IV fluids (ml): 1,200 Urine output (ml): 100 Pathology: none sent Condition: stable Disposition: PACU Operative Findings: The patient was taken the operating room where she was delivered of a viable 8 lbs. 2 oz. baby boy with Apgars of 8 at 1 minute and 9 at 5 minutes delivered in the right occiput transverse position. The placenta was delivered manually, intact, and grossly normal with a grossly normal three-vessel cord. There was minimal scarring entering the abdomen either above the fascia or below. The uterus, tubes, and ovaries were entirely normal to inspection. Description of Procedure: The patient was prepped and draped in usual fashion after spinal anesthesia was administered by the anesthesiologist. A Pfannenstiel incision was made and extended into the abdominal cavity through a pre-existing scar without difficulty. The bladder peritoneum was noted to be distal to the intended site of incision and was left intact. A 2 cm incision was made in the transverse plane of the lower uterine segment to enter the uterus at which time a significant amount of clear fluid was noted. The incision was extended in both directions using the bandage scissors. The infant's head was delivered up and through the incision where the nose and mouth were thoroughly suctioned. Remainder of the infant was delivered onto the field where the cord was doubly clamped, cut, and the infant passed resuscitative measures with weight and Apgars as noted above. cord blood was taken for evaluation for ABO incompatibility. A segment of cord was doubly clamped, cut, and set aside should cord gases become necessary. The placenta was delivered manually and intact as noted above. The uterus was exteriorized and the interior cavity swept of any remaining placental or membranous fragments. The margins of the incision were grasped with Sharma clamps and the incision closed in 2 layers. The first layer was a running locking stitch of 0 chromic catgut followed by a running imbricating layer of 0 chromic catgut, each from margin to margin. Hemostasis appeared to be excellent. The posterior cul-de-sac was suctioned with a guard and a laparotomy sponge was utilized to remove any other clot or fluid. The uterus was replaced within the abdominal cavity and the gutters were swept of any remaining blood, fluid, or clot. The incision was reexamined and found to be hemostatic. The parietal peritoneum was loosely reapproximated and layer of muscles examined and made hemostatic with the Bovie. The fascia was closed with 2 running stitches of 0 Vicryl proceeding from lateral margins to the midpoint. The subcutaneous tissues were irrigated, made hemostatic with the Bovie, and reapproximated with a running stitch of 30 plain catgut. The skin was reapproximated with a running subcuticular stitch of 4-0 Vicryl followed by half-inch Steri-Strips placed with Mastisol. Estimated blood loss for the case was approximate 500 mL. There were no complications. All sponge, instrument, and needle counts were correct. The patient tolerated the procedure well and proceeded to the recovery room in stable condition. Both mother and are resting comfortably in recovery.
[2018-10-02] MEDS: SENNOSIDES-DOCUSATE SODIUM 1 EACH TAB PO SCH (19:53)
[2018-10-02] MEDS: KETOROLAC 30 MG/ML 1 ML VIAL IVP PRN (21:27)
[2018-10-03] MEDS: KETOROLAC 30 MG/ML 1 ML VIAL IVP PRN ×2 (04:12→10:02)
[2018-10-03] MEDS: LACTATED RINGERS 1,000 ML IV SCH (04:30)
--- NOTE | 2018-10-03 07:12 | P.PN ---
Progress Note - Text Progress Note Date: 10/03/18 Patient's postop day 1 from with Duramorph spinal. She is doing well. ABGs doing well. She is able to ambulate. Normal lower extremities, no lower extremity numbness or tingling. Bowel and bladder function have returned normal. Site is clean and dry. This decision will sign off please contact us if she had any issues or questions.
[2018-10-03 07:55] LABS: Basophils % (A) 0 %; Eosinophils # (A) 0.1 k/uL (0-0.7); Eosinophils % (A) 1 %; HCT 22.3 % (34.0-46.0); Hypochromasia Marked; Lymphocytes # (A) 1.1 k/uL (1.0-4.8); Lymphocytes % (A) 11 %; MCH 25.7 pg (25.0-35.0); MCV 80.4 fL (80.0-100.0); Mean Platelet Volume 6.4; Monocytes # (A) 0.7 k/uL (0-1.0); Monocytes % (A) 7 %; Neutrophils # (A) 7.9 k/uL (1.3-7.7); Neutrophils % (A) 80 %; Platelet Count 241 k/uL (150-450); RBC 2.78 m/uL (3.80-5.40); WBC 9.9 k/uL (3.8-10.6)
[2018-10-03 08:03] LABS: HGB 7.1 gm/dL (11.4-16.0)
[2018-10-03] MEDS: SENNOSIDES-DOCUSATE SODIUM 1 EACH TAB PO SCH ×2 (08:41→21:30)
--- NOTE | 2018-10-03 08:57 | P.PNOBGPC ---
Subjective - Subjective Patient reports: Reports appetite normal, Reports voiding normally, Reports pain well controlled, Reports ambulating normally : doing well, nursing well Objective - Vital Signs Latest vital signs: Vital Signs Temp Pulse Resp BP BP Pulse Ox 10/03/18 07:57 98.3 F 88 16 109/74 10/03/18 04:00 98.3 F 102 H 18 109/68 95 10/03/18 00:00 98.4 F 108 H 18 106/69 98 10/02/18 20:00 98.7 F 113 H 18 116/76 96 10/02/18 15:26 98.3 F 110 H 16 123/56 98 10/02/18 14:56 110 H 18 123/56 97 10/02/18 14:26 98.4 F 100 16 120/62 98 10/02/18 14:11 101 H 125/55 98 10/02/18 13:56 98.4 F 100 16 130/53 98 10/02/18 13:41 100 16 107/56 98 10/02/18 13:26 98.1 F 110 H 16 109/50 97 10/02/18 10:25 97.5 F L 111 H 18 123/72 99 Intake and Output 10/02/18 10/03/18 10/03/18 22:59 06:59 14:59 Intake Total 300 1200 Output Total 900 500 Balance -600 700 Intake: Oral 300 1200 Output: Urine 400 500 Estimated Blood Loss 500 Other: # Voids 1 1 - Exam Extremities: Present: normal Abdomen: Present: normal appearance, soft. Absent: distention, tenderness Incision: Present: normal, dry, intact Uterus: Present: normal, firm (The uterine fundus is tonic and nontender at the umbilicus.) - Labs Labs: Abnormal Lab Results - Last 24 Hours (Table) 10/02/18 10/03/18 Range/Units 10:45 06:20 RBC 3.54 L 2.78 L (3.80-5.40) m/uL Hgb 8.7 L 7.1 L D (11.4-16.0) gm/dL Hct 28.0 L 22.3 L (34.0-46.0) % MCV 79.1 L (80.0-100.0) fL MCH 24.5 L (25.0-35.0) pg RDW 16.3 H 16.0 H (11.5-15.5) % Neutrophils # 7.9 H (1.3-7.7) k/uL Assessment and Plan (1) Term Current Visit: Yes Status: Acute Code(s): Z34.80 - ENCOUNTER FOR SUPRVSN OF NORMAL , UNSP TRIMESTER SNOMED Code(s): 44252863 (2) Previous section Current Visit: Yes Status: Acute Code(s): Z98.891 - HISTORY OF UTERINE SCAR FROM PREVIOUS SURGERY SNOMED Code(s): 031973603 (3) S/P section Current Visit: Yes Status: Acute Code(s): Z98.891 - HISTORY OF UTERINE SCAR FROM PREVIOUS SURGERY SNOMED Code(s): 099630902 Plan: Continue routine postoperative care. I anticipate discharge home tomorrow pending no complications. I have encouraged the patient walk in the hallways routinely.
[2018-10-03] MEDS: IBUPROFEN 600 MG TAB PO PRN ×2 (17:22→23:40)
[2018-10-04 00:51] VITALS: RESP 18
[2018-10-04] MEDS: IBUPROFEN 600 MG TAB PO PRN ×2 (07:23→13:34)
[2018-10-04] MEDS: SENNOSIDES-DOCUSATE SODIUM 1 EACH TAB PO SCH (07:24)
--- NOTE | 2018-10-04 08:48 | P.DS ---
Providers Date of admission: 10/02/18 10:05 Expected date of discharge: 10/04/18 Attending physician: Hector Webber Primary care physician: Wes Marley - Discharge Diagnosis(es) (1) Term Current Visit: Yes Status: Acute (2) Previous section Current Visit: Yes Status: Acute (3) S/P section Current Visit: Yes Status: Acute Hospital Course: The patient is a 28-year-old 2 para 1001 admitted for repeat low transverse section. Her had been uncomplicated and group B strep status was negative. On labor and delivery, she was taken the operating room where she was delivered of a viable male infant, weight and Apgars documented earlier. Her postoperative course has been entirely unremarkable with vital signs remained stable and her temperature was afebrile throughout. She was deemed stable for discharge on day #2 and was discharged to follow-up in the office in 2 weeks for an incision check and 6 weeks routinely. Discharge instructions included calling for any significantly increased bleeding or foul-smelling lochia, significantly increased fever abdominal pain, perineal complaints, breast complaints, incisional complaints, or anything else that concerned her. She is additionally instructed to have nothing in the vagina for at least 6 weeks time to include intercourse and to abstain from any heavy lifting over the same period of time. She was last instructed to do no driving until off of all pain medications or 2 weeks' time, whichever came first. She understood her instructions and agrees to follow up as noted above. Discharge medications included continued vitamins as she has opted to breast-feed. She additionally was provided with a prescription for Tylenol 3 , 1-2 by mouth every 6 hours when necessary pain, #20 dispensed with no refills. Maternal blood type is Rh+ and rubella status is immune. Procedures: #1. Repeat low transverse section Patient Condition at Discharge: Good Plan - Discharge Summary New Discharge Prescriptions: No Action Pnv,Calcium 72/Iron/Folic Acid [ Plus Tablet] 1 tab PO DAILY Ranitidine HCl [Zantac] 75 mg PO HS Discharge Medication List Pnv,Calcium 72/Iron/Folic Acid [ Plus Tablet] 1 tab PO DAILY 05/09/17 [ History] Ranitidine HCl [Zantac] 75 mg PO HS 10/02/18 [History] Follow up Appointment(s)/Referral(s): Hector Webber MD [STAFF PHYSICIAN] - 2 Weeks Discharge Disposition: HOME SELF-CARE
[2018-10-04 15:32] VITALS: BP 122/75; PULSE 92; TEMP 97.9
== END 2018-10-04 16:30 | disposition home or self-care (01) | DRG 788 ==
LOC: 4FBP 10:05
PROVIDERS: ADMIT Obstetrics & Gynecology; ATTEND Obstetrics & Gynecology
PROC: 10D00Z1 Extraction of Products of Conception, Low, Open Approach (ICD-10-PCS; principal; 2018-10-02 12:38)
DX: O34.211 Maternal care for low transverse scar from previous cesarean delivery (principal); O99.824 Streptococcus B carrier state complicating childbirth; O99.713 Diseases of the skin and subcutaneous tissue complicating pregnancy, third trimester; K21.9 Gastro-esophageal reflux disease without esophagitis; Z3A.39 39 weeks gestation of pregnancy; Z37.0 Single live birth; Z82.49 Family history of ischemic heart disease and other diseases of the circulatory system; Z82.5 Family history of asthma and other chronic lower respiratory diseases; Z79.899 Other long term (current) drug therapy; Z88.2 Allergy status to sulfonamides; Z91.041 Radiographic dye allergy status
CPT/HCPCS: 85025; 86850; 86900; 86901

== ENCOUNTER 2021-06-01 07:04 | Inpatient (IN) | payer BC, OTHER ==
[2021-06-01] MEDS ORDERED: LACTATED RINGERS 1,000 ML IV ONE (07:47)
[2021-06-01] MEDS ORDERED: CITRIC ACID-SODIUM CITRATE 15 ML CUP PO ONE (07:47)
[2021-06-01] MEDS ORDERED: ONDANSETRON 4 MG/2 ML VIAL ONE (08:03)
[2021-06-01] MEDS ORDERED: DEXAMETHASONE SOD PHOSPHATE 4 MG/ML 1 ML VIAL ONE (08:03)
[2021-06-01] MEDS ORDERED: ePHEDrine SULFATE/0.9% NACL/PF 50 MG/5 ML SYRINGE IV ONE (08:03)
[2021-06-01] MEDS ORDERED: MORPHINE SULFATE (PF) 0.3 MG/0.3 ML SYR ONE (08:03)
[2021-06-01] MEDS ORDERED: OXYTOCIN 30 UNITS/500 ML NS BAG IV ONE (08:03)
[2021-06-01] MEDS ORDERED: KETOROLAC 15 MG/ML 1 ML VIAL ONE (08:03)
[2021-06-01 08:34] LABS: Anisocytosis Slight; Basophils % (A) 0 %; Eosinophils # (A) 0.1 k/uL (0-0.7); Eosinophils % (A) 1 %; HCT 28.4 % (34.0-46.0); Hypochromasia Slight; Lymphocytes # (A) 1.2 k/uL (1.0-4.8); Lymphocytes % (A) 10 %; MCH 25.5 pg (25.0-35.0); MCHC 31.8 g/dL (31.0-37.0); MCV 80.2 fL (80.0-100.0); Mean Platelet Volume 7.6; Monocytes # (A) 0.4 k/uL (0-1.0); Monocytes % (A) 4 %; Neutrophils # (A) 9.6 k/uL (1.3-7.7); Neutrophils % (A) 84 %; Platelet Count 303 k/uL (150-450); Poikilocytosis Slight; RBC 3.54 m/uL (3.80-5.40); RDW 17.4 % (11.5-15.5); WBC 11.5 k/uL (3.8-10.6)
[2021-06-01] MEDS: LACTATED RINGERS 1,000 ML IV SCH ×3 (09:00→20:57)
[2021-06-01] MEDS ORDERED: ONDANSETRON 4 MG/2 ML VIAL IVP PRN (09:19)
[2021-06-01] MEDS ORDERED: diphenhydrAMINE 25 MG CAP PO PRN (09:19)
[2021-06-01] MEDS ORDERED: diphenhydrAMINE 50 MG CAP PO PRN (09:19)
[2021-06-01] MEDS ORDERED: LANOLIN CREAM 5 GM TUBE TOPICAL PRN (09:19)
[2021-06-01] MEDS ORDERED: ZOLPIDEM 5 MG TAB PO PRN (09:19)
[2021-06-01] MEDS ORDERED: diphenhydrAMINE 50 MG/ML 1 ML VIAL IVP PRN ×2 (09:19)
[2021-06-01] MEDS ORDERED: HYDROmorphone 2 MG TAB PO PRN (09:19)
[2021-06-01] MEDS ORDERED: METOCLOPRAMIDE 5 MG/ML 2 ML VIAL IVP PRN (09:19)
[2021-06-01] MEDS ORDERED: NALOXONE 0.4 MG/ML 1 ML VIAL IV PRN (09:19)
[2021-06-01] MEDS ORDERED: SIMETHICONE 80 MG CHEWABLE PO PRN (09:19)
--- NOTE | 2021-06-01 09:25 | P.HPOB ---
History of Present Illness H&P Date: 06/01/21 Chief Complaint: 38-4/7 weeks, previous x2, active labor The patient is a 31-year-old 4 para 2011 admitted at 38-4/7 weeks as established by 6 week ultrasound in active labor with cervix nearly completely dilated. She's had 2 previous sections and had requested a third which was scheduled next week. Her was otherwise entirely uncomplicated and group B strep status is positive. 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 Obstetrical history: 4 para 2011 with 2 previous term sections without complications and one early miscarriage. Current statistics are listed in history of present illness. EDC of 06/11/2021 was established by 6 week ultrasound. Laboratory workup demonstrates a blood type of O+ with a negative antibody screen. Rubella status is immune. The remainder of the laboratory workup was within normal limits. Early Glucola was elevated followed by a normal three-hour glucose tolerance test. Second trimester Glucola was again elevated but followed by a normal three-hour glucose tolerance test. Group B strep status is positive. Gynecologic history: Unremarkable with no history of any infections to include STDs that she has remote history of HSV for which she has been suppressed the end of the third trimester with no evidence of lesions. Review of Systems Review of systems is confined to history of present illness. Past Medical History Additional Past Medical History / Comment(s): LEEP, HSV, seizures as History of Any Multi-Drug Resistant Organisms: None Reported Past Surgical History: Section Additional Past Surgical History / Comment(s): colonoscopy, LEEP Past Anesthesia/Blood Transfusion Reactions: No Reported Reaction Past Psychological History: No Psychological Hx Reported Past Alcohol Use History: Occasional Past Drug Use History: None Reported - Past Family History Mother Additional Family Medical History / Comment(s): IBS, Raynaud's Disease Father Family Medical History: Coronary Artery Disease (CAD), Hyperlipidemia, Hypertension Brother(s) Family Medical History: Asthma Medications and Allergies Home Medications Medication Instructions Recorded Confirmed Type Pnv,Calcium 72/Iron/Folic Acid 1 tab PO DAILY 05/09/17 06/01/21 History [ Plus Tablet] raNITIdine HCL [Zantac] 75 mg PO HS 10/02/18 06/01/21 History Azithromycin [Zithromax Z-pack (6 0 mg PO DIRECTED 06/01/21 06/01/21 History tabs)] valACYclovir [Valtrex] 500 mg PO DAILY 06/01/21 06/01/21 History Allergies Allergy/AdvReac Type Severity Reaction Status Date / Time Iodinated Contrast Media AdvReac Rash/Hives Verified 06/01/21 07:25 [Iodinated Contrast Media - Oral and] sulfamethoxazole AdvReac Rash/Hives Verified 06/01/21 07:25 [From Bactrim] trimethoprim [From Bactrim] AdvReac Rash/Hives Verified 06/01/21 07:25 Exam Intake and Output 05/31/21 06/01/21 06/01/21 22:59 06:59 14:59 Other: Weight 90.718 kg In general, this is a well-developed, well-nourished white female in discomfort as she is in active labor. Her heart has a regular rhythm and rate without murm ur. Her lungs are clear to auscultation bilaterally in all [place]. Her abdomen is gravid, nondistended, soft, nontender, and without any palpable masses aside from the uterine fundus. Her extremities without any cyanosis, clubbing, or significant edema and are nontender to palpation bilaterally. Digital cervical examination demonstrates assertion completely dilated though the head is still high in station and the membranes are intact. Results Result Diagrams: 06/01/21 08:00 Abnormal Lab Results - Last 24 Hours (Table) 06/01/21 Range/Units 08:00 WBC 11.5 H (3.8-10.6) k/uL RBC 3.54 L (3.80-5.40) m/uL Hgb 9.0 L (11.4-16.0) gm/dL Hct 28.4 L (34.0-46.0) % RDW 17.4 H (11.5-15.5) % Neutrophils # 9.6 H (1.3-7.7) k/uL Assessment and Plan (1) Active labor at term Current Visit: No Status: Acute Code(s): MMQ0411 - SNOMED Code(s): 99412893 (2) Previous section Current Visit: No Status: Acute Code(s): Z98.891 - HISTORY OF UTERINE SCAR FROM PREVIOUS SURGERY SNOMED Code(s): 274986947 (3) Term Current Visit: No Status: Acute Code(s): Z34.80 - ENCOUNTER FOR SUPRVSN OF NORMAL , UNSP TRIMESTER SNOMED Code(s): 98180449 Plan: The patient is to be taken for immediate section. Risks and, occasions the procedure been thoroughly discussed and she has understood and agreed to proceed.
[2021-06-01] MEDS ORDERED: OXYTOCIN 30 UNITS/500 ML NS 30 UNIT in SALINE 1 500ML.BAG IV SCH (09:30)
--- NOTE | 2021-06-01 09:30 | P.OP ---
Date of Procedure: 06/01/21 Preoperative Diagnosis: #1. 38-4/7 weeks, previous section x2, requesting repeat #2. Active labor Postoperative Diagnosis: Same Procedure(s) Performed: #1. Repeat low transverse section Anesthesia: spinal Surgeon: Hector Webber School Business Administrator #1: Sharifa French Estimated Blood Loss (ml): 600 IV fluids (ml): 1,400 Urine output (ml): 100 Pathology: none sent Condition: stable Disposition: floor Operative Findings: The patient was taken to the operating room where she was delivered of a viable 7 lbs. 12 oz. baby boy with Apgars of 9 at 1 minute and 10 at 5 minutes. The placenta was delivered manually, intact, and grossly normal with a grossly normal three-vessel cord. The uterus, tubes, and ovaries were entirely normal to inspection. There was a moderate amount of scarring at the level of the fascia and rectus muscles. Description of Procedure: The patient was prepped and draped in usual fashion after spinal anesthesia was administered by the anesthesiologist. A Pfannenstiel incision was made through pre-existing scar and extended into the abdomen without significant difficulty though there was a moderate amount of scarring noted at the level of the rectus muscles and fascia. The bladder peritoneum was noted to be far distal to the intended site of incision was left intact. A 2 cm incision was made in the transverse plane of the lower uterine segment to enter the uterus at which time clear fluid was noted. The incision was extended in both directions using the bandage scissors. The head was delivered from deep in the pelvis up and into the incision and field where the nose and mouth were thoroughly suctioned. Remainder of the infant was delivered onto the field where the cord was doubly clamped, cut, and the infant passed for resuscitative measures with weight and Apgars as noted above. cord blood was collected. A segment of cord was doubly clamped, cut, and set aside should cord gases become necessary. The placenta was delivered manually and intact as noted above. The uterus was exteriorized and the interior cavity of the uterus swept of any remaining membranous or placental fragments. The margins of the incision were grasped with Sharma clamps and the was noted to be laceration at the right angle down towards the cervix and into the blood vessels at the angle. Bleeding was controlled with Sharma clamps. The incision was then closed in 2 layers, the first layer was a running locking stitch of 0 chromic catgut followed by a running imbricating stitch of 0 chromic catgut. Hemostasis appeared to be excellent. Any small points of bleeding were made hemostatic with the Bovie. The posterior cul-de-sac was suctioned with a guard followed by laparotomy sponge. The uterus was replaced within the abdominal cavity and the gutters swept of any remaining blood, fluid, or clot. Examination of the incision demonstrated good hemostasis with a small amount of bleeding at the right angle which was made hemostatic with a single [id number] stitch of 0 chromic catgut. After establishing adequate hemostasis, the parietal peritoneum was loosely reapproximated in the layer of muscles examined and found to be hemostatic. The fascia was closed with 2 running stitches of 0 Vicryl proceeding from the lateral margins to the midpoint. The subcutaneous tissues were irrigated, made hemostatic with the Bovie, and reapproximated with a running stitch of 30 plain catgut. The skin was reapproximated with a running subcuticular stitch of 4-0 Vicryl followed by half-inch Steri-Strips placed with Mastisol. Estimated blood loss for the case was approximately 600 mL. There were no complications. All sponge, instrument, and needle counts were correct. The patient tolerated the procedure well and proceeded to the recovery room in stable condition. Both mother and are resting comfortably in recovery.
[2021-06-01] MEDS: KETOROLAC 15 MG/ML 1 ML VIAL IVP PRN ×2 (15:36→22:42)
[2021-06-01] MEDS: SENNOSIDES-DOCUSATE SODIUM 1 EACH TAB PO SCH (19:41)
[2021-06-01] MEDS: ACETAMINOPHEN TAB 500 MG TAB PO SCH (20:57)
[2021-06-01] MEDS: IBUPROFEN 600 MG TAB PO SCH ×2 (20:57→22:42)
[2021-06-02] MEDS: ACETAMINOPHEN TAB 500 MG TAB PO SCH ×5 (00:20→23:49)
[2021-06-02] MEDS: IBUPROFEN 600 MG TAB PO SCH ×4 (04:26→21:11)
--- NOTE | 2021-06-02 06:48 | P.PN ---
Progress Note - Text Progress Note Date: 06/02/21 Patient seen and examined POD 1 s/p . Patient received spinal with duramorph for post operative pain control. Patient reports adequate pain control this morning and the numbness has worn off. Patient denies head ache, fever, chills, nausea, dizziness. Patient is able to ambulate without difficulty and has used the bathroom. Site is clean and without erythema. Continue to follow.
[2021-06-02 06:58] LABS: Anisocytosis Slight; Basophils % (A) 0 %; Eosinophils % (A) 1 %; Hypochromasia Slight; Lymphocytes # (A) 1.2 k/uL (1.0-4.8); Lymphocytes % (A) 13 %; MCHC 31.4 g/dL (31.0-37.0); MCV 79.5 fL (80.0-100.0); Mean Platelet Volume 7.5; Microcytosis Slight; Monocytes # (A) 0.5 k/uL (0-1.0); Monocytes % (A) 5 %; Neutrophils # (A) 7.2 k/uL (1.3-7.7); Neutrophils % (A) 79 %; Platelet Count 232 k/uL (150-450); Poikilocytosis Slight; RBC 2.42 m/uL (3.80-5.40); WBC 9.2 k/uL (3.8-10.6)
[2021-06-02 07:07] LABS: HCT 19.3 % (34.0-46.0)
[2021-06-02] MEDS: SENNOSIDES-DOCUSATE SODIUM 1 EACH TAB PO SCH ×2 (08:02→21:11)
[2021-06-02] MEDS: FERROUS SULFATE 325 MG TAB PO SCH ×2 (08:08→21:11)
--- NOTE | 2021-06-02 08:48 | P.PNOBGPC ---
Subjective - Subjective Patient reports: Reports appetite normal, Reports voiding normally, Reports pain well controlled, Reports ambulating normally Danielson: doing well, nursing well Objective - Vital Signs Latest vital signs: Vital Signs Temp Pulse Pulse Resp BP Pulse Ox 06/02/21 04:00 98.0 F 77 16 109/65 06/01/21 23:36 98.1 F 81 16 115/89 98 06/01/21 20:00 98.5 F 101 H 16 134/82 06/01/21 15:52 98.1 F 85 16 113/64 98 06/01/21 11:25 96 16 115/65 98 06/01/21 10:45 88 16 118/63 98 06/01/21 10:15 98.0 F 89 16 147/52 98 06/01/21 09:53 85 16 130/58 98 06/01/21 09:40 82 16 121/59 98 06/01/21 09:25 84 16 124/58 99 06/01/21 09:10 97.0 F L 121 H 16 125/65 98 Intake and Output 06/01/21 06/02/21 06/02/21 22:59 06:59 14:59 Output Total 2800 550 Balance -2800 -550 Output: Urine 2800 550 Uretheral (Kunz) 1400 - Exam Extremities: Present: normal Abdomen: Present: normal appearance, soft. Absent: distention, tenderness Incision: Present: normal, dry, intact Uterus: Present: normal, firm (The uterine fundus is tonic and nontender below the umbilicus.) - Labs Labs: Abnormal Lab Results - Last 24 Hours (Table) 06/02/21 Range/Units 06:25 RBC 2.42 L (3.80-5.40) m/uL Hgb 6.0 L* D (11.4-16.0) gm/dL Hct 19.3 L* (34.0-46.0) % MCV 79.5 L (80.0-100.0) fL RDW 18.0 H (11.5-15.5) % Assessment and Plan (1) Active labor at term Current Visit: No Status: Acute Code(s): HFF9298 - SNOMED Code(s): 12867573 (2) Previous section Current Visit: No Status: Acute Code(s): Z98.891 - HISTORY OF UTERINE SCAR FROM PREVIOUS SURGERY SNOMED Code(s): 365443596 (3) Term Current Visit: No Status: Acute Code(s): Z34.80 - ENCOUNTER FOR SUPRVSN OF NORMAL , UNSP TRIMESTER SNOMED Code(s): 83098004 (4) S/P section Current Visit: No Status: Acute Code(s): Z98.891 - HISTORY OF UTERINE SCAR FROM PREVIOUS SURGERY SNOMED Code(s): 505679684 Plan: Continue routine postoperative and care. I would anticipate disch arge home tomorrow pending no complications. I have encouraged the patient ambulate in the hallways routinely.
[2021-06-02 16:49] VITALS: RESP 16
[2021-06-03] MEDS: HYDROmorphone 2 MG TAB PO PRN ×2 (02:11→11:36)
[2021-06-03] MEDS: IBUPROFEN 600 MG TAB PO SCH ×2 (03:07→08:19)
[2021-06-03] MEDS: ACETAMINOPHEN TAB 500 MG TAB PO SCH (06:12)
[2021-06-03 06:27] LABS: Anisocytosis Slight; Hypochromasia Slight; MCH 25.6 pg (25.0-35.0); MCHC 32.2 g/dL (31.0-37.0); MCV 79.7 fL (80.0-100.0); Mean Platelet Volume 7.4; Microcytosis Slight; Platelet Count 255 k/uL (150-450); Poikilocytosis Slight; RBC 2.26 m/uL (3.80-5.40); WBC 9.3 k/uL (3.8-10.6)
[2021-06-03 06:34] LABS: HGB 5.8 gm/dL (11.4-16.0)
[2021-06-03] MEDS: SENNOSIDES-DOCUSATE SODIUM 1 EACH TAB PO SCH (08:19)
[2021-06-03] MEDS: FERROUS SULFATE 325 MG TAB PO SCH (08:20)
[2021-06-03 08:29] VITALS: BP 132/69; PULSE 73; TEMP 97.1
--- NOTE | 2021-06-03 08:47 | P.DS ---
Providers Date of admission: 06/01/21 07:43 Expected date of discharge: 06/03/21 Attending physician: Hector Webber Primary care physician: Stated None - Discharge Diagnosis(es) (1) Acute blood loss anemia Current Visit: Yes Status: Acute (2) Active labor at term Current Visit: No Status: Acute (3) Previous section Current Visit: No Status: Acute Hospital Course: This is a 31-year-old 012 that presented to labor and delivery at 38-4/7 weeks with complaints of regular painful contractions. Patient was noted to be almost completely dilated. Patient has a history of 2 prior C-sections and requested a third. has been uncomplicated, group beta strep cultures were positive. She does in addition have a history of HSV for which she has been on suppressive Valtrex since 36 weeks. Patient was admitted to labor and delivery and repeat section was completed without complication. For further details on the please see the operative report. Patient delivered a viable male infant 7 lbs. 12 oz. with Apgars of 9 and 10 at one and 5 minutes respectively. Patient's course has been essentially uneventful. On this postoperative day #2 she is ambulating and voiding without difficulty. She is tolerating a regular diet without nausea or vomiting. She states her pain is well-controlled. Of note she did have a drop in her hemoglobin on postoperative day #126, this morning noted to be 5.8. Patient is asymptomatic. She denies dizziness or lightheadedness upon ambulation. Patient Condition at Discharge: Good Plan - Discharge Summary New Discharge Prescriptions: No Action Pnv,Calcium 72/Iron/Folic Acid [ Plus Tablet] 1 tab PO DAILY raNITIdine HCL [Zantac] 75 mg PO HS valACYclovir [Valtrex] 500 mg PO DAILY Azithromycin [Zithromax Z-pack (6 tabs)] 0 mg PO DIRECTED Discharge Medication List Pnv,Calcium 72/Iron/Folic Acid [ Plus Tablet] 1 tab PO DAILY 05/09/17 [History] raNITIdine HCL [Zantac] 75 mg PO HS 10/02/18 [History] Azithromycin [Zithromax Z-pack (6 tabs)] 0 mg PO DIRECTED 06/01/21 [History] valACYclovir [Valtrex] 500 mg PO DAILY 06/01/21 [History] Follow up Appointment(s)/Referral(s): Hector Webber MD [STAFF PHYSICIAN] - 2 Weeks Patient Instructions/Handouts: (DC), (GEN) Activity/Diet/Wound Care/Special Instructions: Patient is to begin [id number] iron 325 mg twice daily for acute blood loss anemia. She does have a follow-up appointment with Dr. Webber in 2 weeks. Discharge Disposition: HOME SELF-CARE
== END 2021-06-03 12:00 | disposition home or self-care (01) | DRG 787 ==
LOC: FBPOP 07:04 → 4FBP 07:43
PROVIDERS: ADMIT Obstetrics & Gynecology; ATTEND Obstetrics & Gynecology
PROC: 10D00Z1 Extraction of Products of Conception, Low, Open Approach (ICD-10-PCS; principal; 2021-06-01 07:55)
DX: O34.211 Maternal care for low transverse scar from previous cesarean delivery (principal); O98.32 Other infections with a predominantly sexual mode of transmission complicating childbirth; D62 Acute posthemorrhagic anemia; A60.09 Herpesviral infection of other urogenital tract; O99.824 Streptococcus B carrier state complicating childbirth; O90.81 Anemia of the puerperium; Z37.0 Single live birth; Z3A.38 38 weeks gestation of pregnancy; Z88.2 Allergy status to sulfonamides; Z91.041 Radiographic dye allergy status; Z88.8 Allergy status to other drugs, medicaments and biological substances
CPT/HCPCS: 59025; 85025; 85027; 86850; 86900; 86901; 99213

== ENCOUNTER 2023-12-15 08:01 | Emergency (ER) | payer BC ==
--- NOTE | 2023-12-15 08:24 | ED ---
Abdominal Pain HPI - General Chief Complaint: Abdominal Pain Stated Complaint: Abdominal Pain Time Seen by Provider: 12/15/23 08:16 Source: patient, RN notes reviewed Mode of arrival: wheelchair Limitations: no limitations - History of Present Illness Initial Comments: This is a 33-year-old female who presents to the emergency department for abdominal pain. States that she was woken up around 4 AM with severe pain in the left lower quadrant. States that it feels like she has a knife stabbing her in the stomach and going into the back. Reports associated nausea. She has had diarrhea over the last several days as well. A couple of days ago she had an episode of similar pain lasting 6 to 8 hours, but was not evaluated at that time. Denies any fever/chills. MD Complaint: abdominal pain - Related Data Home Medications Medication Instructions Recorded Confirmed Multivitamin Liquid (Homeopathic) 1 dose PO DAILY 12/15/23 12/15/23 Previous Rx's Medication Instructions Recorded HYDROcodone/APAP 7.5-325MG [Thorofare 1 tab PO Q6HR PRN 3 Days #12 tab 12/15/23 7.5-325] Ketorolac [Toradol] 10 mg PO Q6HR PRN #15 tab 12/15/23 Ondansetron Odt [Zofran Odt] 4 mg PO Q8HR PRN #15 tab 12/15/23 Tamsulosin [Flomax] 0.4 mg PO DAILY 7 Days #7 cap 12/15/23 Allergies Allergy/AdvReac Type Severity Reaction Status Date / Time Iodinated Contrast Media Allergy Rash/Hives Verified 12/15/23 10:29 [Iodinated Contrast Media - Oral and] sulfamethoxazole Allergy Rash/Hives Verified 12/15/23 10:29 [From Bactrim] trimethoprim [From Bactrim] Allergy Rash/Hives Verified 12/15/23 10:29 Mushroom AdvReac Nausea & Verified 12/15/23 10:29 Vomiting Review of Systems ROS Statement: Those systems with pertinent positive or pertinent negative responses have been documented in the HPI. ROS Other: All systems not noted in ROS Statement are negative. Past Medical History Additional Past Medical History / Comment(s): LEEP, HSV, seizures as infant History of Any Multi-Drug Resistant Organisms: None Reported Past Surgical History: Section Additional Past Surgical History / Comment(s): colonoscopy, LEEP Past Anesthesia/Blood Transfusion Reactions: No Reported Reaction Past Psychological History: No Psychological Hx Reported Smoking Status: Never smoker Past Alcohol Use History: Occasional Past Drug Use History: None Reported - Past Family History Mother Additional Family Medical History / Comment(s): IBS, Raynaud's Disease Father Family Medical History: Coronary Artery Disease (CAD), Hyperlipidemia, Hypertension Brother(s) Family Medical History: Asthma General Exam Limitations: no limitations General appearance: alert, in distress Head exam: Present: atraumatic, normocephalic, normal inspection Respiratory exam: Present: normal lung sounds bilaterally. Absent: respiratory distress, wheezes, rales, rhonchi, stridor Cardiovascular Exam: Present: regular rate, normal rhythm, normal heart sounds. Absent: systolic murmur, diastolic murmur, rubs, gallop, clicks GI/Abdominal exam: Present: soft, tenderness (LLQ), normal bowel sounds. Absent: distended Back exam: Present: CVA tenderness (L) Neurological exam: Present: alert, oriented X3, CN II-XII intact Psychiatric exam: Present: normal affect, normal mood Skin exam: Present: warm, dry, intact, normal color. Absent: rash Course Vital Signs 12/15/23 12/15/23 12/15/23 08:11 09:35 11:12 Temperature 97.8 F 98.7 F 98.6 F Pulse Rate 93 89 91 Respiratory 16 17 18 Rate Blood Pressure 175/113 149/92 152/98 O2 Sat by Pulse 100 100 100 Oximetry Medical Decision Making - Medical Decision Making This is a 33 year old female who presents to the emergency department for abdominal pain. Was pt. sent in by a medical professional or institution? @ -No Did you speak to anyone other than the patient for history? @ -No Did you review nursing and triage notes? @ -Yes, and I agree, it is accurate with regards to the patient's symptoms. Were old charts reviewed? @ -No Differential Diagnosis? @ -Differential Abdominal Pain Women: Appendicitis, Cholecystitis, diverticulosis, ischemic bowel, pancreatitis, hepatitis, UTI, gastroenteritis, AAA, incarcerated hernia, bowel obstruction, constipation, inflammatory bowel, hepatitis, peptic ulcer disease, splenic infarction, perforated viscus, vulvitis, ovarian torsion, PID, kidney stone, placenta abruption, this is not meant to be an all-inclusive list EKG interpreted by me (3pts min.)? @ -Not obtained X-rays interpreted by me (1pt min.)? @ -Not obtained CT interpreted by me (1pt min.)? @ -CT scan of the abdomen and pelvis obtained. My interpretation identifies a left ureteral calculus. U/S interpreted by me (1pt. min.)? @ -Not obtained What testing was considered but not performed? (CT, X-rays, U/S, labs)? Why? @ -None What meds were considered but not given? Why? @ -None Did you discuss the management of the patient with other professionals? @ -No Did you reconcile home meds? @ -No Was smoking cessation discussed for >3mins.? @ -No Was critical care preformed (if so, how long)? @ -No Were there social determinants of health that impacted care today? How? (Homelessness, low income, unemployed, alcoholism, drug addiction, transportation, low edu. Level, literacy, decrease access to med. care, nursing home, rehab)? @ -No Was there de-escalation of care discussed even if they declined? (Discuss DNR or withdrawal of care, Hospice)? @ -No What co-morbidities impacted this encounter? (DM, HTN, Smoking, COPD, CAD, Cancer, CVA, Hep., AIDS, mental health diagnosis, sleep apnea, morbid obesity)? @ -None Was patient admitted / discharged? @ -Discharged. Lab work demonstrates leukocytosis. Elevated potassium is hemolyzed. Urinalysis demonstrates blood without evidence of infection. CT scan of the abdomen and pelvis demonstrates a 7 mm obstructing calculus at the left UVJ. Patient's symptoms were well-controlled in the emergency department and she was comfortable with discharge home at that time. Prescription for Toradol, Thorofare, Flomax, and Zofran provided with dosing instructions reviewed. She was given information for urology follow-up and advised to contact them for an appointment. Undiagnosed new problem with uncertain prognosis? @ -None Drug Therapy requiring intensive monitoring for toxicity (Heparin, Nitro, Insulin, Cardizem)? @ -None Were any procedures done? @ -None Diagnosis/symptom? @ -Ureteral calculus, renal colic Acute, or Chronic, or Acute on Chronic? @ -Acute Uncomplicated (without systemic symptoms) or Complicated (systemic symptoms)? @ -Uncomplicated Side effects of treatment? @ -None Exacerbation, Progression, or Severe Exacerbation] @ -Not applicable Poses a threat to life or bodily function? @ -No Return precautions reviewed in depth, the patient is instructed to return to the emergency department with any new, worsening, or concerning symptoms. Patient verbalized understanding. This case was discussed in detail with the attending ED physician, Dr. Espitia. Presentation, findings, and treatment plan discussed in detail as well. - Lab Data Result diagrams: 12/15/23 08:42 12/15/23 08:42 Lab Results 12/15/23 12/15/23 12/15/23 Range/Units 08:42 08:42 08:42 WBC 12.2 H (3.8-10.6) k/uL RBC 4.48 (3.80-5.40) m/uL Hgb 11.5 (11.4-16.0) gm/dL Hct 37.0 (34.0-46.0) % MCV 82.6 (80.0-100.0) fL MCH 25.7 (25.0-35.0) pg MCHC 31.1 (31.0-37.0) g/dL RDW 16.3 H (11.5-15.5) % Plt Count 447 (150-450) k/uL MPV 7.2 Neutrophils % 86 % Lymphocytes % 9 % Monocytes % 3 % Eosinophils % 1 % Basophils % 0 % Neutrophils # 10.4 H (1.3-7.7) k/uL Lymphocytes # 1.1 (1.0-4.8) k/uL Monocytes # 0.4 (0-1.0) k/uL Eosinophils # 0.1 (0-0.7) k/uL Basophils # 0.0 (0-0.2) k/uL Hypochromasia Slight Anisocytosis Slight Sodium 137 (137-145) mmol/L Potassium 6.0 H (3.5-5.1) mmol/L Chloride 108 H (98-107) mmol/L Carbon Dioxide 19 L (22-30) mmol/L Anion Gap 10 mmol/L BUN 15 (7-17) mg/dL Creatinine 0.97 (0.52-1.04) mg/dL Est GFR (CKD-EPI)AfAm 90 (>60 ml/min/1.73 sqM) Est GFR (CKD-EPI)NonAf 78 (>60 ml/min/1.73 sqM) Glucose 127 H (74-99) mg/dL Plasma Lactic Acid Chuck 1.7 (0.7-2.0) mmol/L Calcium 8.6 (8.4-10.2) mg/dL Total Bilirubin 1.2 (0.2-1.3) mg/dL AST 57 H (14-36) U/L ALT 16 (4-34) U/L Alkaline Phosphatase 83 (38-126) U/L Total Protein 8.2 (6.3-8.2) g/dL Albumin 4.6 (3.5-5.0) g/dL Amylase 79 (30-110) U/L Lipase 147 (23-300) U/L HCG, Qual Not Detected Urine Color Urine Appearance (Clear) Urine pH (5.0-8.0) Ur Specific [place] (1.001-1.035) Urine Protein (Negative) Urine Glucose (UA) (Negative) Urine Ketones (Negative) Urine Blood (Negative) Urine Nitrite (Negative) Urine Bilirubin (Negative) Urine Urobilinogen (<2.0) mg/dL Ur Leukocyte Esterase (Negative) Urine RBC (0-5) /hpf Ur Squamous Epith Cells (0-4) /hpf Amorphous Sediment (None) /hpf Urine Mucus (None) /hpf 12/15/23 Range/Units 09:16 WBC (3.8-10.6) k/uL RBC (3.80-5.40) m/uL Hgb (11.4-16.0) gm/dL Hct (34.0-46.0) % MCV (80.0-100.0) fL MCH (25.0-35.0) pg MCHC (31.0-37.0) g/dL RDW (11.5-15.5) % Plt Count (150-450) k/uL MPV Neutrophils % % Lymphocytes % % Monocytes % % Eosinophils % % Basophils % % Neutrophils # (1.3-7.7) k/uL Lymphocytes # (1.0-4.8) k/uL Monocytes # (0-1.0) k/uL Eosinophils # (0-0.7) k/uL Basophils # (0-0.2) k/uL Hypochromasia Anisocytosis Sodium (137-145) mmol/L Potassium (3.5-5.1) mmol/L Chloride (98-107) mmol/L Carbon Dioxide (22-30) mmol/L Anion Gap mmol/L BUN (7-17) mg/dL Creatinine (0.52-1.04) mg/dL Est GFR (CKD-EPI)AfAm (>60 ml/min/1.73 sqM) Est GFR (CKD-EPI)NonAf (>60 ml/min/1.73 sqM) Glucose (74-99) mg/dL Plasma Lactic Acid Chuck (0.7-2.0) mmol/L Calcium (8.4-10.2) mg/dL Total Bilirubin (0.2-1.3) mg/dL AST (14-36) U/L ALT (4-34) U/L Alkaline Phosphatase (38-126) U/L Total Protein (6.3-8.2) g/dL Albumin (3.5-5.0) g/dL Amylase (30-110) U/L Lipase (23-300) U/L HCG, Qual Urine Color Colorless Urine Appearance Turbid H (Clear) Urine pH 7.0 (5.0-8.0) Ur Specific [place] 1.023 (1.001-1.035) Urine Protein Trace H (Negative) Urine Glucose (UA) Negative (Negative) Urine Ketones Negative (Negative) Urine Blood Moderate H (Negative) Urine Nitrite Negative (Negative) Urine Bilirubin Negative (Negative) Urine Urobilinogen <2.0 (<2.0) mg/dL Ur Leukocyte Esterase Negative (Negative) Urine RBC 40 H (0-5) /hpf Ur Squamous Epith Cells 3 (0-4) /hpf Amorphous Sediment Rare H (None) /hpf Urine Mucus Rare H (None) /hpf - Radiology Data Radiology results: report reviewed, image reviewed Disposition Clinical Impression: Left ureteral calculus, Renal colic Disposition: HOME SELF-CARE Instructions (If sedation given, give patient instructions): Kidney Stones (ED ), Renal Colic (ED) Additional Instructions: Return to the emergency department with any new, worsening, or concerning symptoms. Take the Toradol with Tylenol as needed for pain relief. If you choose to take the Toradol, do not take any other anti-inflammatories such as i buprofen, take one or the other. Take the Thorofare sparingly when your pain is the most severe. You can take the Zofran up to every 8 hours as needed for nausea and vomiting. Take the Flomax daily until you pass the kidney stone. Contact the urologist as listed below as soon as you are discharged for a follow-up appointment. Let them know that you were seen in the emergency department and found to have a 7 mm kidney stone in your left ureter. Follow up with your primary care provider in 1-2 days. Prescriptions: Tamsulosin [Flomax] 0.4 mg PO DAILY 7 Days #7 cap HYDROcodone/APAP 7.5-325MG [Thorofare 7.5-325] 1 tab PO Q6HR PRN 3 Days #12 tab PRN Reason: Pain Ketorolac [Toradol] 10 mg PO Q6HR PRN #15 tab PRN Reason: Pain Ondansetron Odt [Zofran Odt] 4 mg PO Q8HR PRN #15 tab PRN Reason: Nausea And Vomiting Is patient prescribed a controlled substance at d/c from ED?: Yes When asked, does pt state using other controlled substances?: No If prescribed controlled substance>3 days was MAPS reviewed?: Prescribed <3 Days Referrals: Ramakrishna Frank DO [Primary Care Provider] - 1-2 days Robert Elizondo MD [STAFF PHYSICIAN] - 1-2 days Time of Disposition: 10:54
[2023-12-15 09:14] LABS: Anisocytosis Slight; Basophils % (A) 0 %; Eosinophils # (A) 0.1 k/uL (0-0.7); Eosinophils % (A) 1 %; HGB 11.5 gm/dL (11.4-16.0); Hypochromasia Slight; Lymphocytes # (A) 1.1 k/uL (1.0-4.8); Lymphocytes % (A) 9 %; MCH 25.7 pg (25.0-35.0); MCHC 31.1 g/dL (31.0-37.0); MCV 82.6 fL (80.0-100.0); Mean Platelet Volume 7.2; Monocytes # (A) 0.4 k/uL (0-1.0); Monocytes % (A) 3 %; Neutrophils # (A) 10.4 k/uL (1.3-7.7); Neutrophils % (A) 86 %; Platelet Count 447 k/uL (150-450); RBC 4.48 m/uL (3.80-5.40); RDW 16.3 % (11.5-15.5); WBC 12.2 k/uL (3.8-10.6)
[2023-12-15] MEDS: ONDANSETRON 4 MG/2 ML VIAL IVP STA (09:17)
[2023-12-15] MEDS: MORPHINE SULFATE 4 MG/ML SYRINGE IVP STA (09:18)
[2023-12-15] MEDS: FAMOTIDINE 20 MG/2 ML VIAL IV STA (09:21)
[2023-12-15] MEDS: diphenhydrAMINE 50 MG/ML 1 ML VIAL IVP STA (09:22)
[2023-12-15] MEDS: SODIUM CHLORIDE 0.9% 1,000 ML IV STA (09:23)
[2023-12-15] MEDS: methylPREDNISolone SOD SUCCI 125 MG/2 ML VIAL IV STA (09:23)
[2023-12-15] MEDS: KETOROLAC 15 MG/ML 1 ML VIAL IVP STA (09:24)
[2023-12-15 09:26] LABS: HCG,Qualitative Serum Not Detected
[2023-12-15 09:44] LABS: ALT 16 U/L (4-34); AST 57 U/L (14-36); African American GFR (CKD) 90 (>60 ml/min/1.73 sqM); Albumin 4.6 g/dL (3.5-5.0); Alkaline Phosphatase 83 U/L (38-126); Amylase 79 U/L (30-110); Anion Gap 10 mmol/L; Blood Urea Nitrogen 15 mg/dL (7-17); Calcium 8.6 mg/dL (8.4-10.2); Carbon Dioxide 19 mmol/L (22-30); Chloride 108 mmol/L (98-107); Glucose 127 mg/dL (74-99); Lipase 147 U/L (23-300); Non-African American GFR(CKD) 78 (>60 ml/min/1.73 sqM); Sodium 137 mmol/L (137-145); Total Bilirubin 1.2 mg/dL (0.2-1.3); Total Protein 8.2 g/dL (6.3-8.2)
[2023-12-15 09:53] LABS: Amorphous Sediment,Urine Rare /hpf; Appearance,Urine Turbid (Clear); Bilirubin,Urine Negative (Negative); Blood,Urine Moderate (Negative); Color,Urine Colorless; Glucose,Urine (UA) Negative (Negative); Ketones,Urine Negative (Negative); Leukocyte Esterase,Urine Negative (Negative); Mucus,Urine Rare /hpf; Nitrite,Urine Negative (Negative); Protein,Urine Trace (Negative); RBC,Urine 40 /hpf (0-5); Specific Gravity,Urine 1.023 (1.001-1.035); Squamous Epithelial Cell,Urine 3 /hpf (0-4); Urobilinogen,Urine <2.0 mg/dL (<2.0)
--- NOTE | 2023-12-15 10:21 | CT ---
EXAMINATION TYPE: CT abdomen pelvis w con DATE OF EXAM: 12/15/2023 COMPARISON: 11/08/2011 INDICATION: LLQ pain DLP: 963 mGycm, Automated exposure control for dose reduction was used. CONTRAST: 100 ml mL of Isovue 300. Study performed with Oral Contrast TECHNIQUE: Axial images were obtained from above the diaphragm to the pubic rami in the axial plane a t 5 mm thick sections. Reconstructed images are reviewed on the computer in the coronal plane. FINDINGS: Limited CT sections are obtained the lung bases. The lung bases are clear. CT ABDOMEN: Liver: Normal Spleen: Normal Pancreas: Normal Adrenal glands: The adrenal glands are normal. Gallbladder: Normal Kidneys: No masses are evident. No cysts are present. There is mild left hydronephrosis. There is m oderate hydroureter. There is a 0.7 cm calcification at the distal left ureterovesical junction causi ng obstruction. On delayed images there is delayed excretion on the left compared to the right. Aorta: Normal Inferior vena cava: Normal. CT PELVIS: Loops of bowel within the abdomen and pelvis are normal. Loops of bowel lack oral contrast limiti ng bowel evaluation. Appendix: Normal as visualized. Urinary bladder: Normal. Genitourinary structures: Uterus is normal. Adnexa are unremarkable. Osseous structures: No suspicious lytic or sclerotic lesions. IMPRESSION: 1. 0.7 cm obstructing left ureterovesical junction stone with mild left hydronephrosis and moderate hydroureter. There is delayed excretion on the left kidney compared to the right.
[2023-12-15 11:26] VITALS: BP 152/98; PULSE 91; RESP 18; TEMP 98.6
== END 2023-12-15 11:16 | disposition home or self-care (01) ==
LOC: EC 08:01
DX: N13.2 Hydronephrosis with renal and ureteral calculous obstruction (principal); Z88.2 Allergy status to sulfonamides; Z88.1 Allergy status to other antibiotic agents; Z91.018 Allergy to other foods; Z91.041 Radiographic dye allergy status
CPT/HCPCS: 36415; 80053; 82150; 83605; 83690; 85025; 81001; 84703; 74177; 99284; 96374; 96375 ×5; 96361 ×2; J2270; J1200; J2405; J3490; J1885; Q9967; J2919

== ENCOUNTER → 2023-12-20 | Outpatient (CLI) | payer BC ==
--- NOTE | 2023-12-23 15:02 | XR ---
EXAMINATION TYPE: XR KUB DATE OF EXAM: 12/20/2023 HISTORY: Pain Comparison: CT dated 12/15/2023Single KUB is submitted for interpretation. Findings: Right renal calculi: None Visualized. Right ureteral calculi: None Visualized. Left renal calculi: 2 mm calculus overlying the upper pole of the left kidney. Left ureteral calculi: 4 mm calculus at the level of the left UVJ has central lucency and could refl ect phlebolith versus UVJ calculus. Pelvic calcifications: See above Bowel gas pattern is unremarkable. No free air. No mass effects. IMPRESSION: 1. As above
== END | disposition home or self-care (01) ==
LOC: RADXRMAIN 09:42
PROVIDERS: ATTEND Urology
DX: N20.2 Calculus of kidney with calculus of ureter (principal)
CPT/HCPCS: 74018

== ENCOUNTER 2024-11-13 09:37 | Day surgery (SDC) | payer BC ==
[2024-11-12 10:56] VITALS: BMI 33.0
[2024-11-13] MEDS: IV FLUID CONTINUATION 1,000 ML IV ONE (10:12)
[2024-11-13] MEDS: LACTATED RINGERS 1,000 ML IV SCH (10:12)
[2024-11-13 10:14] VITALS: RESP 16; TEMP 97.4
[2024-11-13] MEDS ORDERED: PROPOFOL 10 MG/ML 20 ML VIAL IV ONE (10:51)
--- NOTE | 2024-11-13 11:05 | P.PCN ---
Date of Procedure: 11/13/24 Procedure(s) Performed: BRIEF HISTORY: Patient is a 34-year-old pleasant white female scheduled for an elective colonoscopy as a part of evaluation of intermittent rectal bleeding for the last few years duration. PROCEDURE PERFORMED: Colonoscopy. PREOPERATIVE DIAGNOSIS: Rectal bleeding. IV sedation per Anesthesia. PROCEDURE: After informed consent was obtained, the patient, was brought into the endoscopy unit. IV sedation was administered by Anesthesia under continuous monitoring. Digital rectal examination was normal. Initially the Olympus CF-160 flexible video colonoscope was then inserted in the rectum, gradually advanced into the cecum without any difficulty. Careful examination was performed as the scope was gradually being withdrawn. Ileocecal valve and the appendiceal orifice were visualized and appeared normal. Prep was excellent. Mucosa of the cecum, ascending colon, transverse colon, descending colon, sigmoid colon, and rectum appeared normal. Retroflexion was performed in the rectum and no lesions were seen. The patient tolerated the procedure well. IMPRESSION: Normal-appearing colon from rectum to cecum with no evidence of colorectal neoplasia. RECOMMENDATIONS: Findings of this examination were discussed with the patient as well as the family. She was advised to be on a high-fiber diet and take fiber supplements on a regular basis. Avoid straining and constipation..
[2024-11-13 11:35] VITALS: BP 124/67; PULSE 69
== END 2024-11-13 11:49 ==
LOC: ORWHC2ENDO 09:37
PROVIDERS: ATTEND Internal Medicine Gastroenterology
DX: K62.5 Hemorrhage of anus and rectum (principal)
CPT/HCPCS: 81025; 45378; J2704